=== PATIENT | male | born 1980 | race Two or more races ===

== ENCOUNTER 2021-03-01 16:13 | Emergency (ER) | payer SELFPAY ==
[2021-03-01] MEDS ORDERED: Sodium Chloride 0.9% 10 ML Syringe FLUSH PRN (16:24)
[2021-03-01] MEDS ORDERED: Sodium Chloride 0.9% 2.5 ML Syringe FLUSH PRN (16:24)
[2021-03-01] MEDS ORDERED: Sodium Chloride 0.9% 1,000 ML IV ONE (16:24)
[2021-03-01] MEDS ORDERED: Aspirin 81 MG Tab.Chew PO ONE (16:32)
[2021-03-01] MEDS ORDERED: Acetaminophen 500 MG Tab PO ONE (16:40)
[2021-03-01] MEDS ORDERED: Piperacillin/Tazobactam 4.5 GM in Sodium Chloride 0.9% 100 ML IV ONE (16:49)
--- NOTE | 2021-03-01 16:50 | EDM.PDOC ---
<Adriano Greco - Last Filed: 03/01/21 18:29> ED HPI GENERAL MEDICAL PROBLEM - General Chief Complaint: Respiratory Problem Stated Complaint: CHEST PAIN Time Seen by Provider: 03/01/21 16:17 Source of Information: Reports: Patient History Limitations: Reports: No Limitations - History of Present Illness INITIAL COMMENTS - FREE TEXT/NARRATIVE: 40-year-old male no past medical history presents for fever, shortness of breath, chest pain. Patient notes that he has been feeling unwell for the last few days. He woke up this morning had a fever accompanied with right-sided chest pain. He does feel shortness of breath. He denies body aches, abdominal pain, nausea, vomiting. right chest Pain Score (Numeric/FACES): 3 - Related Data Allergies Allergy/AdvReac Type Severity Reaction Status Date / Time No Known Allergies Allergy Verified 03/01/21 16:26 Home Meds: Home Meds . [No Known Home Meds] 03/01/21 [History] Past Medical History - Past Health History Medical/Surgical History: Denies Medical/Surgical History Social & Family History - Family History Cardiac: Reports: Hypertension - Tobacco Use Tobacco Use Status *Q: Current Every Day Tobacco User Years of Tobacco use: 15 Packs/Tins Daily: 0.1 - Recreational Drug Use Recreational Drug Use: No ED ROS GENERAL - Review of Systems Review Of Systems: Comprehensive ROS is negative, except as noted in HPI. ED EXAM, GENERAL - Physical Exam Exam: See Below Exam Limited By: No Limitations General Appearance: Alert, WD/WN, No Apparent Distress Throat/Mouth: Normal Voice, No Airway Compromise Head: Atraumatic, Normocephalic Neck: Normal Inspection, Supple Respiratory/Chest: No Respiratory Distress, Other (diminished R sded lung sounds; mild wheezing) Cardiovascular: Normal Peripheral Pulses, No Edema, Tachycardia GI/Abdominal: Soft, Non-Tender, Other (obese) Extremities: Normal Inspection Neurological: Alert, Oriented, Normal Cognition Psychiatric: Normal Affect, Normal Mood Skin Exam: Warm, Dry, Intact, Normal Color #1 Interpretation EKG Date: 03/01/21 Time: 16:19 Rhythm: NSR Rate (Beats/Min): 127 [place]: Normal P-Wave: Present QRS: Normal ST-T: Normal QT: Normal [place]/PQ Interval: 141 Comparison: NA - No Prior EKG EKG Interpretation Comments: Sinus tachycardia Course - Re-Assessments/Exams Free Text/Narrative Re-Assessment/Exam: 03/01/21 17:00 Patient meet sirs criteria. Will get sepsis work-up labs. Will give fluid bolus. Will start antibiotics. Covid test. 03/01/21 18:29 Significant leukocytosis, patient's O2 sats dipping to low 90s. Will start high flow nasal cannula. Departure - Departure Disposition: DC/Tfer to [facility] 02 Clinical Impression: Fever, Dyspnea, Pleural effusion, Mediastinal adenopathy, Leukocytosis, Hypoxia - Discharge Information Referrals: PCP,None [Primary Care Provider] - Forms: ED Department Discharge Sepsis Event Note (ED) - Evaluation Sepsis Screening Result: Possible Sepsis Risk <Justen Corral - Last Filed: 03/01/21 22:31> Course - Vital Signs Text/Narrative:: 2019 8 PM patient still dependent on high flow oxygen. White count 35,000. Large effusion with possible atelectasis possible infiltrate as well as a couple of nodules on the CT. Patient appears stable at this time. Heart rate is down from 1 15-[address] Villar. "I felt like we needed to relieve the pressure on the lung from the effusion and get a diagnostic thoracentesis. I have been trained to do this procedure and have privileges. He requires me to put the needle over the superior margin of the ribs avoid injury to the artery and vein beneath it. However because of the patient's body habitus I am unable to palpate the ribs well. I discussed the management of this complicated patient with Dr. Lefty Hodges at the [facility]. He accepted the patient in transfer. The patient is stable so I want call for an air ambulance but will wait the availability of ACLS crew to transport to [facility]. Last Recorded V/S: Last Vital Signs Temp 38.1 C 03/01/21 20:20 Pulse 105 H 03/01/21 20:20 Resp 28 H 03/01/21 20:20 BP 135/91 H 03/01/21 20:20 Pulse Ox 90 L 03/01/21 20:20 - Orders/Labs/Meds Orders: Active Orders 24 hr Category Date Time Status EKG Documentation Completion [RC] STAT Care 03/01/21 16:24 Active Oxygen Therapy, ED [RC] ASDIRECTED Care 03/01/21 16:30 Active CULTURE BLOOD [BC] Stat Lab 03/01/21 16:20 Received CULTURE BLOOD [BC] Stat Lab 03/01/21 16:30 Received Sodium Chloride 0.9% [Saline Flush] Med 03/01/21 16:24 Active 10 ml FLUSH ASDIRECTED PRN Sodium Chloride 0.9% [Saline Flush] Med 03/01/21 16:24 Active 2.5 ml FLUSH ASDIRECTED PRN Blood Culture x2 Reflex Set [OM.PC] Stat Oth 03/01/21 16:24 Ordered Saline Lock Insert [OM.PC] Stat Oth 03/01/21 16:24 Ordered Medication Orders Sodium Chloride (Sodium Chloride 0.9% 10 Ml Syringe) 10 ml FLUSH ASDIRECTED PRN PRN Reason: Keep Vein Open Last Admin: 03/01/21 16:34 Dose: 10 ml Documented by: ARMAND Sodium Chloride (Sodium Chloride 0.9% 2.5 Ml Syringe) 2.5 ml FLUSH ASDIRECTED PRN PRN Reason: Keep Vein Open Last Admin: 03/01/21 16:34 Dose: 2.5 ml Documented by: ARMAND Labs: Laboratory Tests 03/01/21 03/01/21 03/01/21 Range/Units 16:20 16:20 16:20 WBC 35.57 H (4.0-11.0) K/uL RBC 5.02 (4.50-5.90) M/uL Hgb 13.8 (13.0-17.0) g/dL Hct 42.0 (38.0-50.0) % MCV 83.7 (80.0-98.0) fL MCH 27.5 (27.0-32.0) pg MCHC 32.9 (31.0-37.0) g/dL RDW Std Deviation 48.1 (28.0-62.0) fl RDW Coeff of Mauro 16 H (11.0-15.0) % Plt Count 295 (150-400) K/uL MPV 10.40 (7.40-12.00) fL Add Manual Diff YES Neutrophils % (Manual) 85 H (48.0-80.0) % Band Neutrophils % 8 % Lymphocytes % (Manual) 4 L (16.0-40.0) % Monocytes % (Manual) 1 (0.0-15.0) % Metamyelocytes % 1 % Myelocytes % 1 % Nucleated RBC % 0.0 /100WBC Absolute Seg Neuts 30.2 H (1.4-5.7) Band Neutrophils # 2.8 Lymphocytes # (Manual) 1.4 (0.6-2.4) Monocytes # (Manual) 0.4 (0.0-0.8) Absolute Metamyelocyte 0.4 Absolute Myelocytes 0.4 Nucleated RBCs # 0 K/uL ABG pH (7.35-7.45) ABG pCO2 (35-45) mmHG ABG pO2 (75-100) mmHG ABG HCO3 (22-26) mEq/L ABG Total CO2 ABG Base Excess (-2.0-2.0) Lactate 1.4 (0.20-2.00) mmol/L Sodium 130 L (136-148) mmol/L Potassium 3.7 (3.5-5.1) mmol/L Chloride 93 L (98-107) mmol/L Carbon Dioxide 29.9 (21.0-32.0) mmol/L BUN 10 (7.0-18.0) mg/dL Creatinine 0.9 (0.8-1.3) mg/dL Est Cr Clr Drug Dosing 106.92 mL/min Estimated GFR (MDRD) > 60.0 ml/min Glucose 165 H (74-106) mg/dL Calcium 8.4 L (8.5-10.1) mg/dL Total Bilirubin 1.0 (0.2-1.0) mg/dL AST 44 H (15-37) IU/L ALT 65 H (14-63) IU/L Alkaline Phosphatase 132 H (46-116) U/L Troponin I < 0.050 (0.000-0.056) ng/mL Total Protein 8.1 (6.4-8.2) g/dL Albumin 2.3 L (3.4-5.0) g/dL Globulin 5.8 H (2.6-4.0) g/dL Albumin/Globulin Ratio 0.4 L (0.9-1.6) Influenza Type A RNA (NEGATIVE) Influenza Type B RNA (NEGATIVE) SARS-CoV-2 RNA (DAYNA) (NEGATIVE) 03/01/21 03/01/21 Range/Units 17:10 18:03 WBC (4.0-11.0) K/uL RBC (4.50-5.90) M/uL Hgb (13.0-17.0) g/dL Hct (38.0-50.0) % MCV (80.0-98.0) fL MCH (27.0-32.0) pg MCHC (31.0-37.0) g/dL RDW Std Deviation (28.0-62.0) fl RDW Coeff of Mauro (11.0-15.0) % Plt Count (150-400) K/uL MPV (7.40-12.00) fL Add Manual Diff Neutrophils % (Manual) (48.0-80.0) % Band Neutrophils % % Lymphocytes % (Manual) (16.0-40.0) % Monocytes % (Manual) (0.0-15.0) % Metamyelocytes % % Myelocytes % % Nucleated RBC % /100WBC Absolute Seg Neuts (1.4-5.7) Band Neutrophils # Lymphocytes # (Manual) (0.6-2.4) Monocytes # (Manual) (0.0-0.8) Absolute Metamyelocyte Absolute Myelocytes Nucleated RBCs # K/uL ABG pH 7.501 H (7.35-7.45) ABG pCO2 38 (35-45) mmHG ABG pO2 61 L (75-100) mmHG ABG HCO3 30 H (22-26) mEq/L ABG Total CO2 26.0 ABG Base Excess 6.0 H (-2.0-2.0) Lactate (0.20-2.00) mmol/L Sodium (136-148) mmol/L Potassium (3.5-5.1) mmol/L Chloride (98-107) mmol/L Carbon Dioxide (21.0-32.0) mmol/L BUN (7.0-18.0) mg/dL Creatinine (0.8-1.3) mg/dL Est Cr Clr Drug Dosing mL/min Estimated GFR (MDRD) ml/min Glucose (74-106) mg/dL Calcium (8.5-10.1) mg/dL Total Bilirubin (0.2-1.0) mg/dL AST (15-37) IU/L ALT (14-63) IU/L Alkaline Phosphatase (46-116) U/L Troponin I (0.000-0.056) ng/mL Total Protein (6.4-8.2) g/dL Albumin (3.4-5.0) g/dL Globulin (2.6-4.0) g/dL Albumin/Globulin Ratio (0.9-1.6) Influenza Type A RNA NEGATIVE (NEGATIVE) Influenza Type B RNA NEGATIVE (NEGATIVE) SARS-CoV-2 RNA (DAYNA) NEGATIVE (NEGATIVE) Meds: Medications Generic Name Dose Route Start Last Admin Trade Name Freq PRN Reason Stop Dose Admin Sodium Chloride 10 ml 03/01/21 16:24 03/01/21 16:34 Sodium Chloride 0.9% 10 Ml Syringe FLUSH 10 ml ASDIRECTED PRN Administration Keep Vein Open Sodium Chloride 2.5 ml 03/01/21 16:24 03/01/21 16:34 Sodium Chloride 0.9% 2.5 Ml Syringe FLUSH 2.5 ml ASDIRECTED PRN Administration Keep Vein Open Discontinued Medications Generic Name Dose Route Start Last Admin Trade Name Freq PRN Reason Stop Dose Admin Acetaminophen 1,000 mg 03/01/21 16:40 03/01/21 16:46 Acetaminophen 500 Mg Tab PO 03/01/21 16:41 1,000 mg ONETIME ONE Administration Aspirin 324 mg 03/01/21 16:32 03/01/21 16:46 Aspirin 81 Mg Tab.Chew PO 03/01/21 16:33 324 mg ONETIME ONE Administration Sodium Chloride 1,000 mls @ 999 mls/hr 03/01/21 16:24 03/01/21 16:34 Normal Saline IV 03/01/21 17:24 999 mls/hr STAT ONE Administration Piperacillin Sod/Tazobactam 100 mls @ 100 mls/hr 03/01/21 16:49 03/01/21 17:57 Sod 4.5 gm/ Sodium Chloride IV 03/01/21 17:48 100 mls/hr ONETIME ONE Administration Iopamidol 75 ml 03/01/21 18:51 03/01/21 18:54 Iopamidol 755 Mg/Ml 500 Ml Multipack Bottle IVPUSH 03/01/21 18:52 75 ml ONETIME STA Administration Departure - Departure Time of Disposition: 23:20 Condition: Good Sepsis Event Note (ED) - Focused Exam Vital Signs: Vital Signs Temp Temp Temp Pulse Resp BP Pulse Ox 03/01/21 20:20 38.1 C 105 H 28 H 135/91 H 90 L 03/01/21 18:18 03/01/21 18:10 115 H 19 140/87 93 L 03/01/21 17:50 136 H 143/82 H 93 L 03/01/21 17:35 116 H 21 H 145/85 H 94 L 03/01/21 17:20 116 H 22 H 147/88 H 94 L 03/01/21 16:46 38.4 C H 03/01/21 16:30 95 03/01/21 16:22 38.5 C H 131 H 32 H 117/78 84 L Pulse Ox 03/01/21 20:20 03/01/21 18:18 95 03/01/21 18:10 03/01/21 17:50 03/01/21 17:35 03/01/21 17:20 03/01/21 16:46 03/01/21 16:30 03/01/21 16:22
[2021-03-01 17:29] LABS: BLOOD UREA NITROGEN,BUN 10 mg/dL (7.0-18.0); CARBON DIOXIDE,CO2 29.9 mmol/L (21.0-32.0); CHLORIDE,CL 93 mmol/L (98-107); GLUCOSE RANDOM 165 mg/dL (74-106); POTASSIUM,K 3.7 mmol/L (3.5-5.1); SODIUM,NA 130 mmol/L (136-148)
--- NOTE | 2021-03-01 17:34 | CR ---
INDICATION: Chest pain COMPARISON: None available TECHNIQUE: Portable AP erect chest performed at 4:36 p.m. FINDINGS: There is a moderate right pleural effusion. There is alveolar opacity within the visualized aerated lung which may indicate an underlying pneumonia. Left lung appears clear. The heart and pulmonary vessels are normal in size. IMPRESSION: Moderate right pleural effusion and possible underlying pneumonia. Dictated by Manuel Ardon MD @ Mar 01 2021 5:31PM Signed by Dr. Manuel Ardon @ Mar 01 2021 5:33PM
[2021-03-01 18:06] LABS: CORONAVIRUS COVID-19 NAA NEGATIVE (NEGATIVE); INFLUENZA A NAA NEGATIVE (NEGATIVE); INFLUENZA B NAA NEGATIVE (NEGATIVE)
[2021-03-01] MEDS ORDERED: Iopamidol 755 MG/ML 500 ML Multipack Bottle IVPUSH STA (18:51)
--- NOTE | 2021-03-01 19:34 | CT ---
INDICATION: Right pleural effusion seen on chest x-ray. COMPARISON: Chest radiograph from earlier today. TECHNIQUE: CT examination of the chest was performed with the uneventful intravenous administration of 25 cc of Isovue 370 while 2.5 mm thick axial sections were obtained through the pulmonary arteries. Please note that all CT scans at this facility use dose modulation, iterative reconstruction, and/or weight-based dosing when appropriate to reduce radiation dose to as low as reasonably achievable. FINDINGS: : There is a moderate right pleural effusion with prominent atelectasis of the basilar segments of the right lower lobe and the inferior portion of the right middle lobe. There is mild residual aeration of the anterior aspect of the superior segments of the right lower lobe. There is moderate atelectasis of the inferior and lateral aspect of the right upper lobe. There is a noncalcified 3 millimeter subpleural nodule in the anterior-lateral lingula toward the lung base on axial image 78 series 202. A 3 millimeter noncalcified subpleural nodule is seen in the posterior-lateral apical-posterior segments of the left upper lobe on axial image 32 series 202. There is mild mediastinal lymphadenopathy with a right paratracheal lymph node with short axis diameter of 1.1 centimeters. This is probably reactive. Multiple other small lymph nodes are present in the subcarinal region and right hilum, without additional lymphadenopathy. There is no sign of hilar mass or adenopathy. The heart is normal in appearance for the patient`s age, as are the aorta and other ascending great vessels. There is no sign of supraclavicular or axillary mass or adenopathy. The visualized superior liver, spleen, pancreas, kidneys, and adrenals are normal in appearance. The osseous structures are normal in appearance for the patient`s age. IMPRESSION: Moderate right pleural effusion of uncertain etiology. Prominent atelectasis of the basilar segments of the right lower lobe with moderate atelectasis of the dependent portions of the rest of the right lung. Mild mediastinal adenopathy, probably reactive. No sign of any pleural effusion or infiltrate in the left lung. Two small noncalcified pulmonary nodules in the left lung which can be followed using Fleischner society criteria. FLEISCHNER SOCIETY GUIDELINES - SOLID NODULES: SINGLE LOW RISK - nodule less than 6 mm: No routine follow-up. - nodule 6-8 mm: CT at 6-12 months, then consider CT at 18-24 months. - nodule greater than 8 mm: Consider CT at 3 months, PET/CT or tissue sampling. SINGLE HIGH RISK - nodule less than 6 mm: Optional CT at 12 months. - nodule 6-8 mm: CT at 6-12 months, then CT at 18-24 months. - nodule greater than 8 mm: Consider CT at 3 months, PET/CT or tissue sampling. MULTIPLE LOW RISK - nodule less than 6 mm: No routine follow-up. - nodule 6-8 mm: CT at 3-6 months, then consider CT at 18-24 months. - nodule greater than 8 mm: CT at 3-6 months, then consider CT at 18-24 months. MULTIPLE HIGH RISK - nodule less than 6 mm: Optional CT at 12 months. - nodule 6-8 mm: CT at 3-6 months, then at 18-24 months. - nodule greater than 8 mm: CT at 3-6 months, then at 18-24 months. Please note that all CT scans at this facility use dose modulation, iterative reconstruction, and/or weight-based dosing when appropriate to reduce radiation dose to as low as reasonably achievable. Dictated by Jude Richardson MD @ Mar 01 2021 7:21PM Signed by Dr. Jude Richardson @ Mar 01 2021 7:32PM
== END 2021-03-02 ==
LOC: MW.ED 16:13
DX: J90 Pleural effusion, not elsewhere classified (principal); R59.0 Localized enlarged lymph nodes; D72.829 Elevated white blood cell count, unspecified; R09.02 Hypoxemia; Z72.0 Tobacco use; Z20.822 Contact with and (suspected) exposure to COVID-19
CPT/HCPCS: 0240U; 36415; 36600; 71045; 71260; 80053; 82803; 83605; 84484; 85025; 87040; 93005; 96365; 99285; A9270; J2543; J7030; Q9967; 93010; 99284

== ENCOUNTER 2023-04-23 09:20 | Inpatient (IN) | payer SELFPAY ==
[2023-04-23] MEDS ORDERED: Sodium Chloride 0.9% 2.5 ML Syringe FLUSH PRN ×2 (09:34→13:50)
[2023-04-23] MEDS ORDERED: Sodium Chloride 0.9% 10 ML Syringe FLUSH PRN ×2 (09:34→13:50)
[2023-04-23 09:53] LABS: BASE EXCESS ARTERIAL 4.8 (-2.0-3.0); BICARBONATE,ARTERIAL 34 mEq/L (22-26); PCO2 ARTERIAL 68 mmHG (35-45); PO2 ARTERIAL 48 mmHG (80-105)
[2023-04-23 09:55] LABS: BASOPHILS ABSOLUTE AUTO 0.1 K/uL (0.0-0.1); BASOPHILS PERCENT AUTO 0.5 % (0.0-1.5); EOSINOPHILS PERCENT AUTO 0.1 % (0.0-7.0); LYMPHOCYTES ABSOLUTE AUTO 1.5 K/uL (0.6-2.4); LYMPHOCYTES PERCENT AUTO 13.8 % (16.0-40.0); MEAN CORPUSCULAR HEMOGLOBIN 22.6 pg (27.0-32.0); MEAN CORPUSCULAR HGB CONC 29.3 g/dL (31.0-37.0); MONOCYTES ABSOLUTE AUTO 0.7 K/uL (0.0-0.8); MONOCYTES PERCENT AUTO 6.4 % (0.0-15.0); NEUTROPHILS ABSOLUTE AUTO 8.3 K/uL (1.4-5.7); NEUTROPHILS PERCENT AUTO 79.2 % (48.0-80.0); PLATELET COUNT,PLT 159 K/uL (150-400); RED BLOOD CELL COUNT 7.53 M/uL (4.50-5.90)
[2023-04-23 10:26] LABS: INR 1.78 (0.86-1.11)
[2023-04-23 10:49] LABS: BILIRUBIN TOTAL 0.9 mg/dL (0.2-1.0); CALCIUM 8.1 mg/dL (8.5-10.1); CARBON DIOXIDE,CO2 34.6 mmol/L (21.0-32.0); CREATININE 1.2 mg/dL (0.8-1.3); EST CRCL DRUG DOSING (CG) 87.35 mL/min; POTASSIUM,K 4.9 mmol/L (3.5-5.1); PROTEIN TOTAL,TP 6.1 g/dL (6.4-8.2); TSH ULTRASENSITIVE 2.25 uIU/mL (0.36-3.74)
[2023-04-23 12:56] LABS: BASE EXCESS ARTERIAL 5.8 (-2.0-3.0); BICARBONATE,ARTERIAL 37 mEq/L (22-26); PCO2 ARTERIAL 79 mmHG (35-45); PO2 ARTERIAL 100 mmHG (80-105)
[2023-04-23] MEDS ORDERED: Furosemide 40 MG/4 ML VIAL IVPUSH ONE ×2 (13:22→21:00)
[2023-04-23] MEDS ORDERED: Ondansetron 4 MG/2 ML SDV IVPUSH PRN (13:50)
[2023-04-23] MEDS ORDERED: Acetaminophen 325 MG Tab PO PRN (13:50)
[2023-04-23] MEDS ORDERED: Docusate Sodium 100 MG Cap PO PRN (13:50)
[2023-04-23] MEDS ORDERED: Polyethylene Glycol 3350 Powder 17 GM Packet PO PRN (13:50)
[2023-04-23] MEDS ORDERED: Glucagon,Human Recombinant 1 MG Vial IM PRN (13:54)
[2023-04-23] MEDS ORDERED: 50% Dextrose in Water 50 ML Syringe IVPUSH PRN (13:54)
[2023-04-23] MEDS ORDERED: Iopamidol 755 MG/ML 500 ML Multipack Bottle IVPUSH STA (17:01)
[2023-04-23 17:37] LABS: PCO2 ARTERIAL 64 mmHG (35-45); PO2 ARTERIAL 107 mmHG (80-105)
[2023-04-23 17:38] LABS: BICARBONATE,ARTERIAL 39 mEq/L (22-26)
[2023-04-23] MEDS: Insulin Aspart 100 Units/ML 3 ML Pen SUBCUT SCH (17:49)
[2023-04-23] MEDS: Enoxaparin 40 MG/0.4 ML Syringe SUBCUT SCH (20:11)
[2023-04-24 06:03] LABS: BASOPHILS PERCENT AUTO 0.3 % (0.0-1.5); EOSINOPHILS ABSOLUTE AUTO 0.1 K/uL (0.0-0.7); EOSINOPHILS PERCENT AUTO 0.6 % (0.0-7.0); HEMATOCRIT 57.7 % (38.0-50.0); HEMOGLOBIN 16.9 g/dL (13.0-17.0); LYMPHOCYTES ABSOLUTE AUTO 1.2 K/uL (0.6-2.4); LYMPHOCYTES PERCENT AUTO 15.7 % (16.0-40.0); MEAN CORPUSCULAR HEMOGLOBIN 22.5 pg (27.0-32.0); MEAN CORPUSCULAR HGB CONC 29.3 g/dL (31.0-37.0); MEAN CORPUSCULAR VOLUME 76.9 fL (80.0-98.0); MONOCYTES ABSOLUTE AUTO 0.6 K/uL (0.0-0.8); NEUTROPHILS ABSOLUTE AUTO 5.8 K/uL (1.4-5.7); NEUTROPHILS PERCENT AUTO 75.4 % (48.0-80.0); PLATELET COUNT,PLT 154 K/uL (150-400); WHITE BLOOD CELL COUNT,WBC 7.72 K/uL (4.0-11.0)
[2023-04-24 06:19] LABS: CALCIUM 7.9 mg/dL (8.5-10.1); CARBON DIOXIDE,CO2 38.2 mmol/L (21.0-32.0); EST CRCL DRUG DOSING (CG) 103.47 mL/min; MAGNESIUM 1.9 mg/dL (1.8-2.4); POTASSIUM,K 4.4 mmol/L (3.5-5.1)
[2023-04-24] MEDS: Insulin Aspart 100 Units/ML 3 ML Pen SUBCUT SCH ×3 (07:36→16:36)
[2023-04-24] MEDS: Pantoprazole 40 MG Tab.CR PO SCH (07:51)
[2023-04-24] MEDS: Losartan 50 MG Tab PO SCH (08:13)
[2023-04-24] MEDS: Enoxaparin 40 MG/0.4 ML Syringe SUBCUT SCH ×2 (08:13→20:05)
[2023-04-24] MEDS: Furosemide 40 MG/4 ML VIAL IVPUSH SCH ×2 (08:13→13:21)
[2023-04-25 07:08] LABS: BASOPHILS PERCENT AUTO 0.2 % (0.0-1.5); EOSINOPHILS ABSOLUTE AUTO 0.1 K/uL (0.0-0.7); EOSINOPHILS PERCENT AUTO 1.4 % (0.0-7.0); HEMATOCRIT 58.6 % (38.0-50.0); HEMOGLOBIN 17.2 g/dL (13.0-17.0); LYMPHOCYTES PERCENT AUTO 15.3 % (16.0-40.0); MEAN CORPUSCULAR HEMOGLOBIN 22.8 pg (27.0-32.0); MEAN CORPUSCULAR HGB CONC 29.4 g/dL (31.0-37.0); MEAN CORPUSCULAR VOLUME 77.5 fL (80.0-98.0); MONOCYTES ABSOLUTE AUTO 0.6 K/uL (0.0-0.8); NEUTROPHILS ABSOLUTE AUTO 4.7 K/uL (1.4-5.7); NEUTROPHILS PERCENT AUTO 74.1 % (48.0-80.0); NRBC ABSOLUTE 0 K/uL; PLATELET COUNT,PLT 165 K/uL (150-400); RED BLOOD CELL COUNT 7.56 M/uL (4.50-5.90); WHITE BLOOD CELL COUNT,WBC 6.32 K/uL (4.0-11.0)
[2023-04-25 07:20] LABS: CARBON DIOXIDE,CO2 41.2 mmol/L (21.0-32.0); CREATININE 0.8 mg/dL (0.8-1.3); EST CRCL DRUG DOSING (CG) 129.33 mL/min; MAGNESIUM 1.9 mg/dL (1.8-2.4); POTASSIUM,K 3.8 mmol/L (3.5-5.1)
[2023-04-25] MEDS: Insulin Aspart 100 Units/ML 3 ML Pen SUBCUT SCH ×3 (08:04→17:51)
[2023-04-25] MEDS: Enoxaparin 40 MG/0.4 ML Syringe SUBCUT SCH ×2 (08:16→20:23)
[2023-04-25] MEDS: Losartan 50 MG Tab PO SCH (08:16)
[2023-04-25] MEDS: Pantoprazole 40 MG Tab.CR PO SCH (08:16)
[2023-04-25] MEDS: Furosemide 40 MG/4 ML VIAL IVPUSH SCH ×2 (08:16→14:32)
[2023-04-25] MEDS ORDERED: acetaZOLAMIDE 250 MG Tab PO ONE (09:22)
[2023-04-26 05:51] LABS: BASOPHILS PERCENT AUTO 0.1 % (0.0-1.5); EOSINOPHILS ABSOLUTE AUTO 0.1 K/uL (0.0-0.7); EOSINOPHILS PERCENT AUTO 2.1 % (0.0-7.0); HEMATOCRIT 59.3 % (38.0-50.0); HEMOGLOBIN 17.6 g/dL (13.0-17.0); LYMPHOCYTES ABSOLUTE AUTO 1.1 K/uL (0.6-2.4); LYMPHOCYTES PERCENT AUTO 15.9 % (16.0-40.0); MEAN CORPUSCULAR HEMOGLOBIN 22.7 pg (27.0-32.0); MEAN CORPUSCULAR HGB CONC 29.7 g/dL (31.0-37.0); MEAN CORPUSCULAR VOLUME 76.6 fL (80.0-98.0); MONOCYTES ABSOLUTE AUTO 0.7 K/uL (0.0-0.8); MONOCYTES PERCENT AUTO 10.8 % (0.0-15.0); NEUTROPHILS ABSOLUTE AUTO 4.8 K/uL (1.4-5.7); NEUTROPHILS PERCENT AUTO 71.1 % (48.0-80.0); NRBC ABSOLUTE 0 K/uL; PLATELET COUNT,PLT 164 K/uL (150-400); RED BLOOD CELL COUNT 7.74 M/uL (4.50-5.90); WHITE BLOOD CELL COUNT,WBC 6.73 K/uL (4.0-11.0)
[2023-04-26 05:53] LABS: CALCIUM 8.5 mg/dL (8.5-10.1); CARBON DIOXIDE,CO2 36.1 mmol/L (21.0-32.0); CREATININE 0.8 mg/dL (0.8-1.3); EST CRCL DRUG DOSING (CG) 129.33 mL/min; POTASSIUM,K 3.8 mmol/L (3.5-5.1)
[2023-04-26] MEDS: Pantoprazole 40 MG Tab.CR PO SCH ×2 (06:17→07:35)
[2023-04-26] MEDS: Insulin Aspart 100 Units/ML 3 ML Pen SUBCUT SCH ×3 (07:35→16:40)
[2023-04-26] MEDS: Furosemide 40 MG/4 ML VIAL IVPUSH SCH ×2 (08:06→14:05)
[2023-04-26] MEDS ORDERED: Empagliflozin 10 MG Tab PO SCH (09:00)
[2023-04-26] MEDS: Losartan 50 MG Tab PO SCH (09:14)
[2023-04-26] MEDS: Enoxaparin 40 MG/0.4 ML Syringe SUBCUT SCH ×2 (09:15→20:33)
[2023-04-26] MEDS: Empagliflozin 10 MG Tab PO SCH (10:39)
[2023-04-27 05:55] LABS: BASOPHILS PERCENT AUTO 0.3 % (0.0-1.5); EOSINOPHILS ABSOLUTE AUTO 0.1 K/uL (0.0-0.7); HEMOGLOBIN 18.2 g/dL (13.0-17.0); LYMPHOCYTES ABSOLUTE AUTO 1.2 K/uL (0.6-2.4); LYMPHOCYTES PERCENT AUTO 16.1 % (16.0-40.0); MEAN CORPUSCULAR HEMOGLOBIN 22.8 pg (27.0-32.0); MEAN CORPUSCULAR HGB CONC 29.8 g/dL (31.0-37.0); MEAN CORPUSCULAR VOLUME 76.3 fL (80.0-98.0); MONOCYTES ABSOLUTE AUTO 0.8 K/uL (0.0-0.8); MONOCYTES PERCENT AUTO 10.8 % (0.0-15.0); NEUTROPHILS ABSOLUTE AUTO 5.1 K/uL (1.4-5.7); NEUTROPHILS PERCENT AUTO 70.8 % (48.0-80.0); NRBC ABSOLUTE 0 K/uL; PLATELET COUNT,PLT 151 K/uL (150-400); WHITE BLOOD CELL COUNT,WBC 7.13 K/uL (4.0-11.0)
[2023-04-27 06:13] LABS: CALCIUM 8.5 mg/dL (8.5-10.1); CARBON DIOXIDE,CO2 33.9 mmol/L (21.0-32.0); EST CRCL DRUG DOSING (CG) 103.47 mL/min; MAGNESIUM 2.1 mg/dL (1.8-2.4); POTASSIUM,K 4.1 mmol/L (3.5-5.1)
[2023-04-27] MEDS: Pantoprazole 40 MG Tab.CR PO SCH ×2 (06:18→06:37)
[2023-04-27] MEDS: Insulin Aspart 100 Units/ML 3 ML Pen SUBCUT SCH ×3 (06:36→16:36)
[2023-04-27] MEDS: Furosemide 40 MG/4 ML VIAL IVPUSH SCH ×2 (07:53→13:43)
[2023-04-27] MEDS: Losartan 50 MG Tab PO SCH (08:01)
[2023-04-27] MEDS: Empagliflozin 10 MG Tab PO SCH (08:02)
[2023-04-27] MEDS: Enoxaparin 40 MG/0.4 ML Syringe SUBCUT SCH ×2 (08:02→20:34)
[2023-04-28 05:43] LABS: BASOPHILS PERCENT AUTO 0.3 % (0.0-1.5); EOSINOPHILS ABSOLUTE AUTO 0.1 K/uL (0.0-0.7); EOSINOPHILS PERCENT AUTO 1.6 % (0.0-7.0); HEMATOCRIT 61.9 % (38.0-50.0); HEMOGLOBIN 18.9 g/dL (13.0-17.0); LYMPHOCYTES ABSOLUTE AUTO 1.4 K/uL (0.6-2.4); LYMPHOCYTES PERCENT AUTO 20.4 % (16.0-40.0); MEAN CORPUSCULAR HEMOGLOBIN 23.1 pg (27.0-32.0); MEAN CORPUSCULAR HGB CONC 30.5 g/dL (31.0-37.0); MEAN CORPUSCULAR VOLUME 75.8 fL (80.0-98.0); MONOCYTES ABSOLUTE AUTO 0.7 K/uL (0.0-0.8); MONOCYTES PERCENT AUTO 10.8 % (0.0-15.0); NEUTROPHILS ABSOLUTE AUTO 4.5 K/uL (1.4-5.7); NEUTROPHILS PERCENT AUTO 66.9 % (48.0-80.0); NRBC ABSOLUTE 0 K/uL; PLATELET COUNT,PLT 160 K/uL (150-400); RED BLOOD CELL COUNT 8.17 M/uL (4.50-5.90); WHITE BLOOD CELL COUNT,WBC 6.77 K/uL (4.0-11.0)
[2023-04-28 05:58] LABS: CALCIUM 8.5 mg/dL (8.5-10.1); CARBON DIOXIDE,CO2 31.7 mmol/L (21.0-32.0); EST CRCL DRUG DOSING (CG) 103.47 mL/min; POTASSIUM,K 3.9 mmol/L (3.5-5.1)
[2023-04-28] MEDS: Pantoprazole 40 MG Tab.CR PO SCH ×2 (06:09→06:31)
[2023-04-28] MEDS: Insulin Aspart 100 Units/ML 3 ML Pen SUBCUT SCH ×3 (06:31→16:13)
[2023-04-28] MEDS: Empagliflozin 10 MG Tab PO SCH (08:05)
[2023-04-28] MEDS: Losartan 50 MG Tab PO SCH (08:05)
[2023-04-28] MEDS: Enoxaparin 40 MG/0.4 ML Syringe SUBCUT SCH ×2 (08:05→20:05)
[2023-04-28] MEDS: Furosemide 40 MG/4 ML VIAL IVPUSH SCH ×2 (08:05→13:41)
[2023-04-29] MEDS: Pantoprazole 40 MG Tab.CR PO SCH ×2 (06:14→06:30)
[2023-04-29 06:22] LABS: BASOPHILS PERCENT AUTO 0.4 % (0.0-1.5); EOSINOPHILS ABSOLUTE AUTO 0.1 K/uL (0.0-0.7); EOSINOPHILS PERCENT AUTO 1.5 % (0.0-7.0); HEMOGLOBIN 19.4 g/dL (13.0-17.0); LYMPHOCYTES ABSOLUTE AUTO 1.6 K/uL (0.6-2.4); LYMPHOCYTES PERCENT AUTO 21.1 % (16.0-40.0); MEAN CORPUSCULAR HEMOGLOBIN 22.9 pg (27.0-32.0); MEAN CORPUSCULAR HGB CONC 30.3 g/dL (31.0-37.0); MEAN CORPUSCULAR VOLUME 75.4 fL (80.0-98.0); MONOCYTES ABSOLUTE AUTO 0.8 K/uL (0.0-0.8); MONOCYTES PERCENT AUTO 10.4 % (0.0-15.0); NEUTROPHILS PERCENT AUTO 66.6 % (48.0-80.0); NRBC ABSOLUTE 0 K/uL; PLATELET COUNT,PLT 154 K/uL (150-400); RED BLOOD CELL COUNT 8.49 M/uL (4.50-5.90)
[2023-04-29] MEDS: Insulin Aspart 100 Units/ML 3 ML Pen SUBCUT SCH ×3 (06:30→17:40)
[2023-04-29 06:36] LABS: BLOOD UREA NITROGEN,BUN 20 mg/dL (7.0-18.0); CALCIUM 8.7 mg/dL (8.5-10.1); CHLORIDE,CL 99 mmol/L (98-107); CREATININE 0.9 mg/dL (0.8-1.3); ESTIMATED GFR 108 mL/min (>60); GLUCOSE RANDOM 100 mg/dL (74-106); POTASSIUM,K 3.8 mmol/L (3.5-5.1); SODIUM,NA 138 mmol/L (136-148)
[2023-04-29] MEDS: Furosemide 40 MG/4 ML VIAL IVPUSH SCH ×2 (07:59→13:09)
[2023-04-29] MEDS: Enoxaparin 40 MG/0.4 ML Syringe SUBCUT SCH ×2 (08:00→20:40)
[2023-04-29] MEDS: Empagliflozin 10 MG Tab PO SCH (08:00)
[2023-04-29] MEDS: Losartan 50 MG Tab PO SCH (08:00)
[2023-04-29] MEDS ORDERED: Spironolactone 25 MG Tab ONE (17:35)
[2023-04-29] MEDS: Spironolactone 25 MG Tab PO SCH (17:39)
[2023-04-30 06:08] LABS: BASOPHILS PERCENT AUTO 0.6 % (0.0-1.5); EOSINOPHILS ABSOLUTE AUTO 0.1 K/uL (0.0-0.7); EOSINOPHILS PERCENT AUTO 1.6 % (0.0-7.0); HEMATOCRIT 62.7 % (38.0-50.0); HEMOGLOBIN 19.4 g/dL (13.0-17.0); LYMPHOCYTES ABSOLUTE AUTO 1.9 K/uL (0.6-2.4); MEAN CORPUSCULAR HGB CONC 30.9 g/dL (31.0-37.0); MEAN CORPUSCULAR VOLUME 73.9 fL (80.0-98.0); MONOCYTES ABSOLUTE AUTO 0.6 K/uL (0.0-0.8); MONOCYTES PERCENT AUTO 9.1 % (0.0-15.0); NEUTROPHILS ABSOLUTE AUTO 4.1 K/uL (1.4-5.7); NEUTROPHILS PERCENT AUTO 60.7 % (48.0-80.0); NRBC ABSOLUTE 0 K/uL; RED BLOOD CELL COUNT 8.48 M/uL (4.50-5.90); WHITE BLOOD CELL COUNT,WBC 6.82 K/uL (4.0-11.0)
[2023-04-30 06:26] LABS: BLOOD UREA NITROGEN,BUN 22 mg/dL (7.0-18.0); CALCIUM 8.7 mg/dL (8.5-10.1); CARBON DIOXIDE,CO2 29.3 mmol/L (21.0-32.0); CHLORIDE,CL 98 mmol/L (98-107); CREATININE 0.9 mg/dL (0.8-1.3); GLUCOSE RANDOM 94 mg/dL (74-106); POTASSIUM,K 3.6 mmol/L (3.5-5.1); SODIUM,NA 137 mmol/L (136-148)
[2023-04-30 06:28] LABS: ESTIMATED GFR 108 mL/min (>60)
[2023-04-30] MEDS: Pantoprazole 40 MG Tab.CR PO SCH (06:36)
[2023-04-30] MEDS: Insulin Aspart 100 Units/ML 3 ML Pen SUBCUT SCH ×2 (06:36→11:47)
[2023-04-30 06:46] LABS: PLATELET COUNT,PLT 224
[2023-04-30 06:47] LABS: MEAN CORPUSCULAR HEMOGLOBIN 22.9 pg (27.0-32.0)
[2023-04-30] MEDS: Furosemide 40 MG/4 ML VIAL IVPUSH SCH (08:17)
[2023-04-30] MEDS: Losartan 50 MG Tab PO SCH (08:17)
[2023-04-30] MEDS: Empagliflozin 10 MG Tab PO SCH (08:17)
[2023-04-30] MEDS: Enoxaparin 40 MG/0.4 ML Syringe SUBCUT SCH (08:20)
[2023-04-30] MEDS: Spironolactone 25 MG Tab PO SCH (08:29)
== END 2023-04-30 12:40 | disposition home or self-care (01) | DRG 291 ==
LOC: MW.ED 09:20 → MW.ICU 13:31 → MW.MS 04-25 14:30
PROVIDERS: ADMIT Internal Medicine; ATTEND Internal Medicine
PROC: 5A09357 Assistance with Respiratory Ventilation, Less than 24 Consecutive Hours, Continuous Positive Airway Pressure (ICD-10-PCS; principal; 2023-04-26)
DX: I11.0 Hypertensive heart disease with heart failure (principal); I50.33 Acute on chronic diastolic (congestive) heart failure; J96.01 Acute respiratory failure with hypoxia; J96.02 Acute respiratory failure with hypercapnia; E87.29 Other acidosis; E87.3 Alkalosis; Z68.42 Body mass index [BMI] 45.0-49.9, adult; I27.20 Pulmonary hypertension, unspecified; E11.9 Type 2 diabetes mellitus without complications; J43.9 Emphysema, unspecified; G47.33 Obstructive sleep apnea (adult) (pediatric); N50.89 Other specified disorders of the male genital organs; E66.01 Morbid (severe) obesity due to excess calories; Z79.4 Long term (current) use of insulin; Z79.84 Long term (current) use of oral hypoglycemic drugs; Z99.89 Dependence on other enabling machines and devices; Z79.899 Other long term (current) drug therapy; Z87.891 Personal history of nicotine dependence
CPT/HCPCS: 36415; 36600; 71045; 71045-26; 74177; 74177-26; 80048; 80053; 82803; 82947; 83735; 83880; 84443; 84484; 85025; 85610; 93005; 93010; 93306; 94660; 96374; 99223; 99232; 99239; 99285; 99285-25; A9270-GY; J1650; J1940; J3490; Q9967